=== PATIENT | male | born 1970 | race Caucasian/White ===

== ENCOUNTER 2016-07-14 20:00 | Emergency (ER) | payer OTHER | END 2016-07-15 00:01 | disposition home or self-care (01) | LOC: ER 20:00 | DX: J06.9 Acute upper respiratory infection, unspecified (principal); H60.92 Unspecified otitis externa, left ear; E11.9 Type 2 diabetes mellitus without complications; I10 Essential (primary) hypertension; R05 Cough; Z79.899 Other long term (current) drug therapy | CPT/HCPCS: 99283 ==